=== PATIENT | female | born 1990 | race Asian ===

== ENCOUNTER → 2017-12-06 20:05 | Outpatient (CLI) | payer MEDICAID ==
[~2017-12-06 20:05] MED LIST: PRENATAL COMPLE1 TAB PO
[2017-12-06 20:49] LABS: APPEARANCE CLEAR (CLEAR); BILIRUBIN NEGATIVE (NEGATIVE); COLOR STRAW (YELLOW); GLUCOSE NEGATIVE (NEGATIVE); KETONE NEGATIVE (NEGATIVE); NITRITE NEGATIVE (NEGATIVE); PROTEIN NEGATIVE (NEGATIVE); SPECIFIC GRAVITY 1.005 (1.005-1.020); UROBILINOGEN NORMAL (NORMAL)
[2017-12-06 21:03] LABS: UDS - AMPHET NEGATIVE QUAL (NEGATIVE); UDS - BARB NEGATIVE QUAL (NEGATIVE); UDS - BENZO NEGATIVE QUAL (NEGATIVE); UDS - COCAINE NEGATIVE QUAL (NEGATIVE); UDS - OPIATE NEGATIVE QUAL (NEGATIVE); UDS - PCP NEGATIVE QUAL (NEGATIVE); UDS - THC NEGATIVE QUAL (NEGATIVE)
== END | disposition home or self-care (01) ==
LOC: D.LDO 20:05
PROVIDERS: Obstetrics & Gynecology
DX: O26.893 Other specified pregnancy related conditions, third trimester (principal); Z3A.36 36 weeks gestation of pregnancy; R10.30 Lower abdominal pain, unspecified; M54.5 Low back pain

== ENCOUNTER 2019-02-05 20:38 | Emergency (ER) | payer SELFPAY ==
[~2019-02-05] VITALS: Ht 157.5 cm; Wt 47.7 kg
[2019-02-05 20:45] VITALS: Ht 157.5 cm; Wt 47.7 kg
[2019-02-05] MEDS ORDERED: LAMICTAL100 MG PO (20:54)
[2019-02-05 22:15] LABS: BASOPHILS 0.4 % (0-2); EOSINOPHILS 2.4 % (0-7); HEMATOCRIT 40.3 % (36.0-48.0); HEMOGLOBIN 13.7 g/dL (12-16); IMMATURE GRANULOCYTES 0.1 % (0-5); LYMPHOCYTES 36.4 % (15-50); MCH 30.2 pg (26.0-34.0); MCV 88.8 fL (80.0-100.0); MONOCYTES 8.9 % (2-11); NEUTROPHILS 51.8 % (40-80); PLATELET COUNT 216 10x3/uL (130-400); RBC 4.54 10x6/uL (4.00-5.40); WBC 7.9 10x3/uL (4.8-10.8)
[2019-02-05 22:31] LABS: ALBUMIN 3.5 g/dL (3.4-5.0); ALKALINE PHOSPHATASE 74 U/L (46-116); ALT (SGPT) 20 U/L (10-68); BILIRUBIN - TOTAL 0.22 mg/dL (0.2-1.3); CALC OSMOLALITY 279 mosm/kg (275-300); CALCIUM 8.5 mg/dL (8.5-10.1); CARBON DIOXIDE 27.3 mmol/L (21.0-32.0); CHLORIDE - SERUM 107 mmol/L (98-107); CREATININE - SERUM 0.7 mg/dL (0.6-1.3); GLUCOSE 92 mg/dL (74-106); POTASSIUM - SERUM 4.1 mmol/L (3.5-5.1); PROTEIN - SERUM 6.2 g/dL (6.4-8.2); SODIUM 140 mmol/L (136-145); UREA NITROGEN 16 mg/dL (7-18); eGFR NON AFRICAN AMERICAN > 90 mL/min (90-120)
[2019-02-05 22:50] LABS: TROPONIN-I < 0.017 ng/mL (0.000-0.060)
[2019-02-05] MEDS ORDERED: VISTARIL25 MG PO (23:00)
[2019-02-05 23:40] VITALS: BP 90/56
== END 2019-02-05 23:40 | disposition home or self-care (01) ==
LOC: D.ER 20:38
PROVIDERS: Family Medicine
DX: F41.9 Anxiety disorder, unspecified (principal); F32.9 Major depressive disorder, single episode, unspecified